=== PATIENT | male | born 1975 | race Caucasian/White ===

== ENCOUNTER → 2018-11-26 | Day surgery (SDC) | payer MEDICAID ==
[2018-11-24 12:45] LABS: Basophils # (auto) 0.1 uL; Basophils % (auto) 3.6 % (0.0-2.0); Eosinophils # (auto) 0.1 uL; Eosinophils % (auto) 2.2 % (0.0-7.0); Hematocrit 44.2 % (41.0-53.0); Hemoglobin 14.4 g/dL (13.5-17.5); Lymphocytes # (auto) 1.3 uL; Lymphocytes % (auto) 38.1 % (10.0-50.0); Mean Corpuscular Hemoglobin 29.4 pg (28.0-32.0); Mean Corpuscular Hgb Conc. 32.7 g/dL (32.0-36.0); Mean Corpuscular Volume 89.9 fL (80.0-100.0); Monocytes # (auto) 0.3 uL; Neutrophils # (auto) 1.5 uL; Neutrophils % (auto) 47.1 % (37.0-80.0); Nucleated Red Blood Cells % 0.1 %; Platelet Count (auto) 212 10^3/uL (140-450); Red Blood Cells 4.91 10^6/uL (4.5-5.90); Red Cell Distribution Width 14.2 % (11.8-14.3); White Blood Cell 3.3 10^3/uL (4.4-10.8)
[2018-11-24 13:00] LABS: INR 0.99 (0.9-1.15); Partial Thromboplastin Time 27.1 sec (23.78-33.04); Prothrombin Time 10.6 sec (9.27-12.13)
[2018-11-24 13:50] LABS: Potassium 4.1 mmol/L (3.5-5.1)
[2018-11-24 14:06] LABS: Albumin 4.1 g/dL (3.4-5.0); BUN/Creatinine Ratio 20.8; Bilirubin, Total 0.5 mg/dL (0.2-1.0); Calcium 9.5 mg/dL (8.5-10.1); Total Protein 7.6 g/dL (6.4-8.2)
[~2018-11-26] VITALS: Ht 170.2 cm; Wt 44.9 kg
[~2018-11-26] MED LIST: BRIV1TAB7 PO; BUPIVACAINE HCL 50 ML ONE; HYDROmorphone HCL 2 MG/ML VL IV PRN; LEVE100012 PO; LIDOCAINE 1% HCL (LOCAL ANESTH.) INJ 20ML MDV ONE; MIDAZOLAM HCL 1MG/1ML-2 ML VIAL ONE; ONDANSETRON HCL 4 MG/2 ML VIAL IV ONE; ROCURONIUM 10MG/ML 10ML VIAL IV ONE; SUCCINYLCHOLINE CHLORIDE 20 MG/ML 10ML VIAL IV ONE; ceFAZolin 1GM/50ML 50 ML IV ONE; ePHEDrine SULFATE 50 MG/ML AMP IV PRN; fentaNYL CITRATE 100 MCG/2 ML VL ONE
[2018-11-26 18:31] VITALS: BP 118/73
== END | disposition home or self-care (01) ==
LOC: SUR 12:08
PROVIDERS: ATTEND Podiatrist
DX: M24.571 Contracture, right ankle (principal); M24.572 Contracture, left ankle; G80.9 Cerebral palsy, unspecified; Z79.899 Other long term (current) drug therapy; R26.2 Difficulty in walking, not elsewhere classified
CPT/HCPCS: 27687; 36415; 80053; 85025; 85610; 85730; J0330; J0690; J1170; J2001; J2250; J3010; J3490